=== PATIENT | female | born 1965 | race Caucasian/White ===

== ENCOUNTER 2020-01-28 09:52 | Observation (INO) | payer SELFPAY ==
[~2020-01-28 09:52] MED LIST: GLYCOPYRROLATE 1 MG/5 ML VIAL ONE; KETOROLAC TROMETHAMINE 60 MG/2 ML SDV ONE; NEOSTIGMINE METHYLSULFATE 10 MG/10 ML VIAL ONE; ONDANSETRON HCL INJ/PF 4 MG/2 ML SDV ONE; ROCURONIUM BROMIDE INJ 50 MG/5 ML VIAL IV ONE; SUCCINYLCHOLINE CHLORIDE INJ 200 MG/10 ML VIAL ONE
[2020-01-28] MEDS ORDERED: NORMAL SALINE 1000 ML 1,000 ML IV ONE (10:09)
[2020-01-28] MEDS ORDERED: ONDANSETRON HCL INJ/PF 4 MG/2 ML SDV IV ONE (10:11)
[2020-01-28] MEDS ORDERED: MORPHINE SULFATE 10 MG/ML INJ IV ONE (10:11)
--- NOTE | 2020-01-28 10:11 | ER Document Report ---
ED Medical Screen (RME) - General Chief Complaint: Abdominal Pain Stated Complaint: ABDOMINAL PAIN Time Seen by Provider: 01/28/20 10:05 Notes: Patient is a 54-year-old female who presents to the emergency department with a chief complaint of mid upper abdominal pain. Patient states that her symptoms started last night. States that she tried taking Mylanta, baking soda and water, and Tums to help with her symptoms, but her symptoms did not go away. States "I think it could possibly be my gallbladder." Exam: Tender mid upper and right upper quadrant. I have greeted and performed a rapid initial assessment of this patient. A comprehensive ED assessment and evaluation of the patient, analysis of test results and completion of medical decision making process will be conducted by an additional ED providers. - Related Data Allergies/Adverse Reactions: No Known Allergies Allergy (Verified 01/28/20 10:01) Past Medical History - Social History Chew tobacco use (# tins/day): No Frequency of alcohol use: Occasional Drug Abuse: None - Past Medical History Cardiac Medical History: Reports: Hx Hypercholesterolemia - Immunizations Hx Diphtheria, Pertussis, Tetanus Vaccination: Yes Physical Exam - Vital signs Vitals: Temp Pulse Resp BP Pulse Ox 97.9 F 104 H 20 153/93 H 98 01/28/20 09:59 01/28/20 09:59 01/28/20 09:59 01/28/20 09:59 01/28/20 09:59 Course - Vital Signs Vital signs: Temp Pulse Resp BP Pulse Ox 97.9 F 104 H 20 153/93 H 98 01/28/20 10:02 01/28/20 09:59 01/28/20 09:59 01/28/20 09:59 01/28/20 09:59
[2020-01-28 10:47] LABS: ABSOLUTE BASOPHILS # (AUTO) 0.1 10^3/uL (0.0-0.2); ABSOLUTE MONOCYTES (AUTO) 0.3 10^3/uL (0.1-1.4); BASOPHILS % (AUTO) 0.4 % (0-2); HEMATOCRIT 41.4 % (36.0-47.0); HEMOGLOBIN 14.2 g/dL (12.0-15.5); LYMPHOCYTES % (AUTO) 7.2 % (13-45); MEAN CORPUSCULAR HEMOGLOBIN 29.2 pg (27.0-33.4); MEAN CORPUSCULAR HGB CONC 34.3 g/dL (32.0-36.0); MEAN CORPUSCULAR VOLUME 85 fl (80-97); MONOCYTES % (AUTO) 2.5 % (3-13); PLATELET COUNT 289 10^3/uL (150-450); RED BLOOD COUNT 4.87 10^6/uL (3.72-5.28); RED CELL DISTRIBUTION WIDTH 12.8 % (11.5-14.0); SEGMENTED NEUTROPHILS % (AUTO) 89.9 % (42-78); TOTAL CELLS COUNTED % (AUTO) 100 %; WHITE BLOOD COUNT 13.4 10^3/uL (4.0-10.5)
[2020-01-28 10:48] LABS: APPEARANCE,URINE SLIGHTLY-CLOUDY; BILIRUBIN,URINE NEGATIVE (NEGATIVE); COLOR,URINE YELLOW; GLUCOSE, URINE NEGATIVE (NEGATIVE); KETONES,URINE TRACE mg/dL (NEGATIVE); LEUKOCYTE ESTERASE,URINE NEGATIVE (NEGATIVE); NITRITE,URINE NEGATIVE (NEGATIVE); PROTEIN,URINE 30 mg/dL (NEGATIVE); URINE SPECIFIC GRAVITY 1.026; UROBILINOGEN,URINE NEGATIVE mg/dL (<2.0)
[2020-01-28 11:03] LABS: ALBUMIN 4.8 g/dL (3.5-5.0); ALKALINE PHOSPHATASE 85 U/L (38-126); ANION GAP 10 (5-19); ASPARTATE AMINO TRANSFERASE 29 U/L (14-36); BILIRUBIN,TOTAL 0.5 mg/dL (0.2-1.3); BLOOD UREA NITROGEN 14 mg/dL (7-20); CALCIUM 10.4 mg/dL (8.4-10.2); CARBON DIOXIDE 25 mmol/L (22-30); CHLORIDE 101 mmol/L (98-107); GLUCOSE 145 mg/dL (75-110); POTASSIUM 4.2 mmol/L (3.6-5.0); TOTAL PROTEIN 7.8 g/dL (6.3-8.2)
--- NOTE | 2020-01-28 11:36 | RADIOLOGY REPORT (SQ) ---
EXAM DESCRIPTION: U/S ABDOMEN LIMITED W/O DOP IMAGES COMPLETED DATE/TIME: 01/28/2020 11:22 am REASON FOR STUDY: mid/upper abd pain COMPARISON: None. TECHNIQUE: Dynamic and static grayscale images acquired of the abdomen and recorded on PACS. Additio nal selected color Doppler and spectral images recorded. LIMITATIONS: None. FINDINGS: PANCREAS: Visualized portions of the pancreas are unremarkable. LIVER: Echotexture is coarse with increased echogenicity consistent with fatty infiltration. There i s hepatomegaly. The liver measures 18.3 cm in length. There are small areas of fatty sparing. LIVER VASCULATURE: Normal directional flow of the main portal vein and hepatic veins. GALLBLADDER: There are gallstones. There is an approximately 1 cm nonshadowing stone or sludge ball. ULTRASOUND-DETECTED WRAY'S SIGN: Negative. INTRAHEPATIC DUCTS AND COMMON DUCT: The common bile duct is slightly dilated measured at 7 mm. AORTA: No aneurysm. RIGHT KIDNEY: Normal size. Normal echogenicity. No solid or suspicious masses. No hydronephros is. No calcifications. PERITONEAL AND RIGHT PLEURAL SPACE: No ascites or effusions. OTHER: No other significant finding. IMPRESSION: 1. Fatty infiltrated liver. Mild hepatomegaly. 2. Gallstones and probable 1 cm sludge ball. 3. Mild common bile duct dilatation. The common bile duct measures 7 mm. TECHNICAL DOCUMENTATION: JOB ID: [id number] 2010 [employer]- All Rights Reserved Reading location - IP/workstation name: [email or web address]
[2020-01-28] MEDS ORDERED: ONDANSETRON HCL INJ/PF 4 MG/2 ML SDV IV PRN (14:09)
--- NOTE | 2020-01-28 14:16 | PDOC H&P ---
History of Present Illness Patient complains of: Abdominal pain History of Present Illness: RANDALL FREEMAN is a 54 year old female Presents emergency department via ground rescue with history of acute onset abdominal pain yesterday 5 PM after eating nachos. Patient continued to have abdominal pain nausea, anorexia and some vomiting. She was seen in the emergency department where she is found to have right upper quadrant tenderness. Gallbladder ultrasonography revealed gallstones. Surgery was consulted and she was advised admission for definitive management. White blood cell count was elevated at 13,000, liver function studies within normal limits. Of note patient is never had a colonoscopy. Past Medical History Cardiac Medical History: Reports: Hyperlipidema Past Surgical History Past Surgical History: Reports: None Social History Information Source: Patient Smoking Status: Former Smoker Electronic Cigarette use?: No Frequency of Alcohol Use: Rare Hx Recreational Drug Use: No Hx Prescription Drug Abuse: No Family History Family History: None Parental Family History Reviewed: No Children Family History Reviewed: No Sibling(s) Family History Reviewed.: No Medication/Allergy Home Medications: Cholecalciferol (Vitamin D3) [Vitamin D] 5,000 unit PO DAILY 03/20/12 Glucosa Dang 2Kcl/Chondroitin Dang [Glucosamine & Chondroitin Cap] 1 each PO DAILY 03/20/12 Hydrocodone Bit/Acetaminophen [Vicodin 5-500 mg Tablet] 1 - 2 tab PO ASDIR PRN #15 tablet 03/20/12 Ibuprofen 800 mg PO DAILY 03/20/12 Naproxen [Naprosyn] 500 mg PO BID #14 tablet 03/20/12 Allergies/Adverse Reactions: No Known Allergies Allergy (Verified 01/28/20 10:01) Review of Systems Constitutional: PRESENT: as per HPI Eyes: ABSENT: visual disturbances Ears: ABSENT: hearing changes Cardiovascular: ABSENT: chest pain, dyspnea on exertion, edema, orthropnea, palpitations Respiratory: ABSENT: cough, hemoptysis Gastrointestinal: PRESENT: as per HPI Genitourinary: ABSENT: dysuria, hematuria Musculoskeletal: ABSENT: joint swelling Integumentary: ABSENT: rash, wounds Neurological: ABSENT: abnormal gait, abnormal speech, confusion, dizziness, focal weakness, syncope Psychiatric: ABSENT: anxiety, depression, homidical ideation, suicidal ideation Endocrine: ABSENT: cold intolerance, heat intolerance, polydipsia, polyuria Hematologic/Lymphatic: ABSENT: easy bleeding, easy bruising Physical Exam Vital Signs: Temp Pulse Resp BP Pulse Ox 97.9 F 104 H 20 153/93 H 98 01/28/20 10:02 01/28/20 09:59 01/28/20 09:59 01/28/20 09:59 01/28/20 09:59 Intake & Output 01/27/20 01/28/20 01/29/20 06:59 06:59 06:59 Intake Total 1000 Balance 1000 Weight 83.2 kg General appearance: PRESENT: no acute distress Head exam: PRESENT: normocephalic Eye exam: PRESENT: EOMI Mouth exam: PRESENT: dry mucosa Neck exam: PRESENT: full ROM Respiratory exam: PRESENT: clear to auscultation sandy Cardiovascular exam: PRESENT: RRR Pulses: PRESENT: normal carotid pulses, normal radial pulses, normal femoral pulses, normal dorsalis pedis pul, +1 pedal pulses bilateral Breast: PRESENT: Normal GI/Abdominal exam: PRESENT: other - Tender right upper quadrant with mild guarding. No rigidity; no hernias. Rectal exam: PRESENT: deferred Extremities exam: PRESENT: full ROM Musculoskeletal exam: PRESENT: full ROM Neurological exam: PRESENT: oriented to person, oriented to place, oriented to time, oriented to situation Psychiatric exam: PRESENT: appropriate affect Skin exam: PRESENT: dry Results Laboratory Results: 01/28/20 10:21 01/28/20 10:21 01/28/20 01/28/20 01/28/20 10:21 10:21 10:21 WBC 13.4 H RBC 4.87 Hgb 14.2 Hct 41.4 MCV 85 MCH 29.2 MCHC 34.3 RDW 12.8 Plt Count 289 Seg Neutrophils % 89.9 H Sodium 135.9 L Potassium 4.2 Chloride 101 Carbon Dioxide 25 Anion Gap 10 BUN 14 Creatinine 0.81 Est GFR ( Amer) > 60 Glucose 145 H Calcium 10.4 H Total Bilirubin 0.5 AST 29 Alkaline Phosphatase 85 Total Protein 7.8 Albumin 4.8 Lipase 92.3 Urine Color YELLOW Urine Appearance SLIGHTLY-CLOUDY Urine pH 5.0 Ur Specific [place] 1.026 Urine Protein 30 H Urine Glucose (UA) NEGATIVE Urine Ketones TRACE H Urine Blood SMALL H Urine Nitrite NEGATIVE Ur Leukocyte Esterase NEGATIVE Urine WBC (Auto) 5 Urine RBC (Auto) 5 01/28/20 10:21 Troponin I < 0.012 Impressions: Abdomen Ultrasound 01/28/20 10:08 IMPRESSION: 1. Fatty infiltrated liver. Mild hepatomegaly. 2. Gallstones and probable 1 cm sludge ball. 3. Mild common bile duct dilatation. The common bile duct measures 7 mm. Assessment & Plan - Diagnosis (1) Symptomatic cholelithiasis Is this a current diagnosis for this admission?: Yes Plan: Impression: Acute symptomatic cholelithiasis with cholecystitis and otherwise healthy 54-year-old white female; patient tender right upper quadrant despite n arcotic therapy. Recommend admission Plan: 1. Admit to surgical service, clear liquids today, keep n.p.o. after midnight and plan for laparoscopic, possible open cholecystectomy on January 28. 2. The above plan explained to the patient and her daughter. They expressed understanding agree to proceed. 3. We will check COVID-19 status today. (2) Leukocytosis Is this a current diagnosis for this admission?: Yes - Time Time Spent: 30 to 50 Minutes Critical Time spent with patient: 15-24 minutes Anticipated discharge: Home - Inpatient Certification Based on my medical assessment, after consideration of the patient's comorbi dities, presenting symptoms, or acuity I expect that the services needed warrant INPATIENT care.: Yes I certify that my determination is in accordance with my understanding of Medicare's requirements for reasonable and necessary INPATIENT services [42 CFR 412.3e].: Yes Medical Necessity: Need For IV Fluids, Need for Pain Control, Need for IV Antibiotics, Need for Surgery
--- NOTE | 2020-01-28 14:31 | ER Document Report ---
ED General - General Chief Complaint: Abdominal Pain Stated Complaint: ABDOMINAL PAIN Time Seen by Provider: 01/28/20 10:05 Mode of Arrival: Medic Information source: Patient - HPI Notes: Patient presents with right upper quadrant and epigastric abdominal pain. It does radiate across to the left side of the upper part of the abdomen. It is a sharp and colicky type pain. It does also go to her back. It is severe in intensity. It has been constant. Is worse with movement and better with rest. She states that it seemed to start after eating nodules last night for dinner. She has had nausea and vomiting. No problems with stool or urine. No previous history of abdominal surgeries. - Related Data Allergies/Adverse Reactions: No Known Allergies Allergy (Verified 01/28/20 10:01) Past Medical History - General Information source: Patient - Social History Smoking Status: Former Smoker Chew tobacco use (# tins/day): No Frequency of alcohol use: Occasional Drug Abuse: None Family History: None Patient has homicidal ideation: No - Past Medical History Cardiac Medical History: Reports: Hx Hypercholesterolemia Past Surgical History: Reports: None - Immunizations Hx Diphtheria, Pertussis, Tetanus Vaccination: Yes Review of Systems - Review of Systems Constitutional: denies: Chills, Fever Cardiovascular: denies: Chest pain, Palpitations Respiratory: denies: Cough, Short of breath -: Yes All other systems reviewed and negative Physical Exam - Vital signs Vitals: Temp Pulse Resp BP Pulse Ox 97.9 F 104 H 20 153/93 H 98 01/28/20 09:59 01/28/20 09:59 01/28/20 09:59 01/28/20 09:59 01/28/20 09:59 Interpretation: Hypertensive - General General appearance: Appears well, Alert - HEENT Head: Normocephalic, Atraumatic Eyes: Normal Pupils: PERRL - Respiratory Respiratory status: No respiratory distress Chest status: Nontender Breath sounds: Normal Chest palpation: Normal - Cardiovascular Rhythm: Regular Heart sounds: Normal auscultation Murmur: No - Abdominal Inspection: Normal Distension: No distension Bowel sounds: Normal Tenderness: Tender - Patient has tenderness in the right upper quadrant, De Jesus's sign - to palpation. Organomegaly: No organomegaly - Back Back: Normal, Nontender - Extremities General upper extremity: Normal inspection, Nontender, Normal color, Normal ROM, Normal temperature General lower extremity: Normal inspection, Nontender, Normal color, Normal ROM, Normal temperature, Normal weight bearing. No: Cynthia's sign - Neurological Neuro grossly intact: Yes Cognition: Normal Orientation: AAOx4 [place] Coma Scale Eye Opening: Spontaneous [place] Coma Scale Verbal: Oriented [place] Coma Scale Motor: Obeys Commands [place] Coma Scale Total: 15 Speech: Normal Motor strength normal: LUE, RUE, LLE, RLE Sensory: Normal - Psychological Associated symptoms: Normal affect, Normal mood - Skin Skin Temperature: Warm Skin Moisture: Dry Skin Color: Normal Course - Re-evaluation Re-evalutation: 01/28/20 14:30 Patient presents with symptoms after eating a fatty meal. Work-up is consistent with acute cholecystitis. Surgery was consulted and will admit the patient for further care. - Vital Signs Vital signs: Temp Pulse Resp BP Pulse Ox 97.9 F 104 H 20 153/93 H 98 01/28/20 10:02 01/28/20 09:59 01/28/20 09:59 01/28/20 09:59 01/28/20 09:59 - Laboratory Result Diagrams: 01/28/20 10:21 01/28/20 10:21 Laboratory results interpreted by me: 01/28/20 01/28/20 01/28/20 10:21 10:21 10:21 WBC 13.4 H Lymph % (Auto) 7.2 L [place] % (Auto) 2.5 L Absolute Neuts (auto) 12.0 H Seg Neutrophils % 89.9 H Sodium 135.9 L Glucose 145 H Calcium 10.4 H Urine Protein 30 H Urine Ketones TRACE H Urine Blood SMALL H - Diagnostic Test Radiology reviewed: Image reviewed, Reports reviewed - EKG Interpretation by Sd EKG shows normal: Sinus rhythm Rate: Normal - 87 Rhythm: NSR [place]/QRS: No: Right axis deviation, Left axis deviation Discharge - Discharge Clinical Impression: Acute cholecystitis Condition: Fair Disposition: ADMITTED INPATIENT Admitting Provider: Surgicalist Unit Admitted: Surgical Floor
--- NOTE | 2020-01-28 14:32 | EKG REPORT ---
SEVERITY:- BORDERLINE ECG - SINUS RHYTHM BORDERLINE T WAVE ABNORMALITIES : Confirmed by: Nimisha Alcala MD 28-Jan-2020 14:32:09
[2020-01-28] MEDS ORDERED: CEFAZOLIN 1 GM/D5W RTU 1 GM/50 ML RTUPB IV SCH (15:00)
[2020-01-28] MEDS ORDERED: ACETAMINOPHEN 1,000 MG/100 ML RTUPB IV ONE ×2 (17:48→23:54)
[2020-01-28] MEDS: RINGERS SOLUTION,LACTATED 1,000 ML IV PRN (17:55)
[2020-01-28] MEDS: ACETAMINOPHEN INJ/PF 1000 MG/100 ML SDV IV SCH ×2 (17:58→23:59)
[2020-01-28] MEDS: CEFAZOLIN 1 GM/D5W RTU 1 GM/50 ML RTUPB IV SCH (18:28)
[2020-01-29] MEDS: RINGERS SOLUTION,LACTATED 1,000 ML IV PRN (00:41)
[2020-01-29] MEDS: CEFAZOLIN 1 GM/D5W RTU 1 GM/50 ML RTUPB IV SCH ×3 (01:40→18:29)
[2020-01-29] MEDS ORDERED: ACETAMINOPHEN 1,000 MG/100 ML RTUPB IV ONE (05:07)
[2020-01-29] MEDS: ACETAMINOPHEN INJ/PF 1000 MG/100 ML SDV IV SCH ×3 (05:11→18:29)
[2020-01-29] MEDS ORDERED: FENTANYL CITRATE INJ/PF 100 MCG/2 ML AMPUL ONE ×2 (06:57→11:22)
[2020-01-29] MEDS ORDERED: PROPOFOL INJ 200 MG/20 ML VIAL IV ONE (06:58)
[2020-01-29] MEDS ORDERED: MIDAZOLAM 2 MG/2 ML INJ ONE (06:58)
[2020-01-29] MEDS ORDERED: ROCURONIUM BROMIDE INJ 50 MG/5 ML VIAL IV ONE (08:06)
[2020-01-29] MEDS ORDERED: SUCCINYLCHOLINE CHLORIDE INJ 200 MG/10 ML VIAL ONE (08:06)
[2020-01-29] MEDS ORDERED: BUPIVACAINE INJ/PF LIPOSOME/PF 266 MG/20 ML SDV ONE (11:21)
[2020-01-29] MEDS ORDERED: MORPHINE SULFATE 10 MG/ML INJ ONE (11:23)
[2020-01-29] MEDS ORDERED: CEFAZOLIN INJ 1 GM VIAL ONE (11:53)
[2020-01-29] MEDS ORDERED: PROMETHAZINE HCL INJ 25 MG/1 ML VIAL IV PRN (12:36)
[2020-01-29] MEDS ORDERED: FENTANYL CITRATE INJ/PF 100 MCG/2 ML AMPUL IV PRN ×3 (12:36)
[2020-01-29] MEDS ORDERED: ONDANSETRON HCL INJ/PF 4 MG/2 ML SDV IV PRN (12:36)
[2020-01-29] MEDS ORDERED: DIPHENHYDRAMINE HCL 50 MG/ML VIAL IV PRN (12:36)
[2020-01-29] MEDS ORDERED: MEPERIDINE HCL/PF INJ 25 MG/1 ML DISP.SYRIN IV PRN (12:36)
[2020-01-29] MEDS ORDERED: OXYCODONE-ACETAMINOPHEN 5-325 MG TABLET PO PRN ×2 (12:36)
[2020-01-29] MEDS ORDERED: MORPHINE SULFATE 10 MG/ML INJ IV PRN (12:36)
--- NOTE | 2020-01-29 12:58 | Operative Report ---
Nonrecallable Operative Report DATE OF SURGERY: 01/29/20 PREOPERATIVE DIAGNOSIS: Acute cholecystitis POSTOPERATIVE DIAGNOSIS: Acute cholecystitis OPERATION: Laparoscopic cholecystectomy SURGEON: ERROL ANTONIO ANESTHESIA: GA TISSUE REMOVED OR ALTERED: Gallbladder COMPLICATIONS: None ESTIMATED BLOOD LOSS: 25 cc INTRAOPERATIVE FINDINGS: See note PROCEDURE: After obtaining informed consent, the patient was taken to the operating room. General Anesthesia was induced; the arms were extended, and the abdomen was exposed, and prepped and draped in a sterile fashion. Instrumentation was set up for laparoscopic cholecystectomy. Surgical plan and surgical timeout were conducted. A vertical incision was made above the umbilicus, and a verres needle was inserted uneventfully into the peritoneal cavity. Pneumoperitoneum was established. The verres needle was removed and a 10 mm trocar was inserted and a 10 mm Ble laparoscope was inserted. Visualization of the peritoneal cavity confirmed safe uneventful entry. Under direct visualization 3 additional 5 mm ports were established, one in the subxiphoid position and second in the subcostal position. Visualization of the hepatobiliary anatomy revealed no anatomic variations. A grasper was placed on the fundus of the gallbladder and the gallbladder is elevated over the right surface of the liver; a second grasper was used to grasp the infundibulum of the gallbladder. The neck of the gallbladder and junction with the cystic duct was dissected out. The Cystic artery was in its usual location medial and cephalad to the cystic duct. The cystic artery was surrounded with a right angle clamp, clipped twice proximally and divided with laparoscopic scissors. We now opened the triangle of [place] by dividing the peritoneal reflection on both the medial and lateral sides of the cystic duct infundibular junction. The critical view was obtained. We now milked the cystic duct of any possible stones, clipped the cystic duct approximately 2 times once distally and divided with scissors. The gallbladder was now removed from the undersurface of the liver using hook cautery dissection. Graspers were repositioned and the gallbladder was removed uneventfully from the abdominal cavity through the super umbilical port site incision. The specimen was examined, then passed off to pathology for permanent analysis. We returned to the peritoneal cavity check for bleeding, and evidence of bile leak, and there was none. We Confirmed satisfactory placement of clips on cystic duct and cystic artery were secured . At this point we felt the operation was complete. The subcutaneous tissue was then anesthetized with stefania rter percent Marcaine Sponge and needle counts are correct. All ports removed under direct visualization pneumoperitoneum evacuated, and 5 mm port wounds closed with 3-0 Vicryl suture, benzoin and Steri-Strips. The patient was extubated, and taken to the recovery room in stable condition. Estimated blood loss was 25 cc sponge needle counts were correct x2
--- NOTE | 2020-01-29 13:01 | PDOC DISCHARGE SUMMARY ---
General - Admit/Disc Date/PCP Admission Date/Primary Care Provider: 01/28/20 14:42 Discharge Date: 01/29/20 - Discharge Diagnosis Final Diagnosis: Acute cholecystitis - Assessment Summary: Patient was admitted to the hospital the day prior to surgery with right upper quadrant pain and signs and symptoms of acute cholecystitis. She was taken to the operating the following morning for a laparoscopic cholecystectomy. The procedure was uneventful and she had a routine postoperative recovery. She is now afebrile with stable vital signs she is tolerating liquids and ready for discharge home. She will be followed up in surgical clinic in 7 to 10 days after discharge. She will be given a small amount of Percocet for pain. Final diagnosis acute cholecystitis - Additional Information Resuscitation Status: Full Code Discharge Diet: As Tolerated Discharge Activity: Activity As Tolerated, No Lifting Over 10 Pounds, No Lifting/Push/Pulling Prescriptions: Oxycodone HCl/Acetaminophen [Percocet 10-325 Mg Tablet] 1 each PO Q6HP PRN #15 tablet PRN Reason: Home Medications: Oxycodone HCl/Acetaminophen [Percocet 10-325 Mg Tablet] 1 each PO Q6HP PRN #15 tablet 01/29/20 History of Present Illiness History of Present Illness: RANDALL FREEMAN is a 54 year old female Physical Exam Vital Signs: Temp Pulse Resp BP Pulse Ox 97.9 F 77 18 134/79 H 97 01/29/20 10:15 01/29/20 10:15 01/29/20 10:15 01/29/20 10:15 01/29/20 10:15 Intake & Output 01/28/20 01/29/20 01/30/20 06:59 06:59 06:59 Intake Total 2600 650 Output Total 650 Balance 2600 0 Weight 40 kg Results Laboratory Results: WBC 13.4 10^3/uL (4.0-10.5) H 01/28/20 10:21 RBC 4.87 10^6/uL (3.72-5.28) 01/28/20 10:21 Hgb 14.2 g/dL (12.0-15.5) 01/28/20 10:21 Hct 41.4 % (36.0-47.0) 01/28/20 10:21 MCV 85 fl (80-97) 01/28/20 10:21 MCH 29.2 pg (27.0-33.4) 01/28/20 10:21 MCHC 34.3 g/dL (32.0-36.0) 01/28/20 10:21 RDW 12.8 % (11.5-14.0) 01/28/20 10:21 Plt Count 289 10^3/uL (150-450) 01/28/20 10:21 Lymph % (Auto) 7.2 % (13-45) L 01/28/20 10:21 [place] % (Auto) 2.5 % (3-13) L 01/28/20 10:21 Eos % (Auto) 0.0 % (0-6) 01/28/20 10:21 Baso % (Auto) 0.4 % (0-2) 01/28/20 10:21 Absolute Neuts (auto) 12.0 10^3/uL (1.7-8.2) H 01/28/20 10:21 Absolute Lymphs (auto) 1.0 10^3/uL (0.5-4.7) 01/28/20 10:21 Absolute Monos (auto) 0.3 10^3/uL (0.1-1.4) 01/28/20 10:21 Absolute Eos (auto) 0.0 10^3/uL (0.0-0.6) 01/28/20 10:21 Absolute Basos (auto) 0.1 10^3/uL (0.0-0.2) 01/28/20 10:21 Seg Neutrophils % 89.9 % (42-78) H 01/28/20 10:21 Sodium 135.9 mmol/L (137-145) L 01/28/20 10:21 Potassium 4.2 mmol/L (3.6-5.0) 01/28/20 10:21 Chloride 101 mmol/L (98-107) 01/28/20 10:21 Carbon Dioxide 25 mmol/L (22-30) 01/28/20 10:21 Anion Gap 10 (5-19) 01/28/20 10:21 BUN 14 mg/dL (7-20) 01/28/20 10:21 Creatinine 0.81 mg/dL (0.52-1.25) 01/28/20 10:21 Est GFR ( Amer) > 60 (>60) 01/28/20 10:21 Est GFR (MDRD) Non-Af > 60 (>60) 01/28/20 10:21 Glucose 145 mg/dL (75-110) H 01/28/20 10:21 Calcium 10.4 mg/dL (8.4-10.2) H 01/28/20 10:21 Total Bilirubin 0.5 mg/dL (0.2-1.3) 01/28/20 10:21 Direct Bilirubin 0.0 mg/dL (0.0-0.4) 01/28/20 10:21 Neonat Total Bilirubin Not Reportable 01/28/20 10:21 Neonat Direct Bilirubin Not Reportable 01/28/20 10:21 Neonat Indirect Bili Not Reportable 01/28/20 10:21 AST 29 U/L (14-36) 01/28/20 10:21 ALT 29 U/L (<35) 01/28/20 10:21 Alkaline Phosphatase 85 U/L (38-126) 01/28/20 10:21 Troponin I < 0.012 ng/mL 01/28/20 10:21 Total Protein 7.8 g/dL (6.3-8.2) 01/28/20 10:21 Albumin 4.8 g/dL (3.5-5.0) 01/28/20 10:21 Lipase 92.3 U/L (23-300) 01/28/20 10:21 Urine Color YELLOW 01/28/20 10:21 Urine Appearance SLIGHTLY-CLOUDY 01/28/20 10:21 Urine pH 5.0 (5.0-9.0) 01/28/20 10:21 Ur Specific [place] 1.026 01/28/20 10:21 Urine Protein 30 mg/dL (NEGATIVE) H 01/28/20 10:21 Urine Glucose (UA) NEGATIVE mg/dL (NEGATIVE) 01/28/20 10:21 Urine Ketones TRACE mg/dL (NEGATIVE) H 01/28/20 10:21 Urine Blood SMALL (NEGATIVE) H 01/28/20 10:21 Urine Nitrite NEGATIVE (NEGATIVE) 01/28/20 10:21 Urine Bilirubin NEGATIVE (NEGATIVE) 01/28/20 10:21 Urine Urobilinogen NEGATIVE mg/dL (<2.0) 01/28/20 10:21 Ur Leukocyte Esterase NEGATIVE (NEGATIVE) 01/28/20 10:21 Urine WBC (Auto) 5 /HPF 01/28/20 10:21 Urine RBC (Auto) 5 /HPF 01/28/20 10:21 Urine Bacteria (Auto) TRACE /HPF 01/28/20 10:21 Squamous Epi Cells Auto 6 /HPF 01/28/20 10:21 Urine Mucus (Auto) FEW /LPF 01/28/20 10:21 Urine Ascorbic Acid NEGATIVE (NEGATIVE) 01/28/20 10:21 SARS-CoV-2 (PCR) NEGATIVE (NEGATIVE) 01/28/20 14:50 01/28/20 10:21 Troponin I < 0.012 Impressions: Abdomen Ultrasound 01/28/20 10:08 IMPRESSION: 1. Fatty infiltrated liver. Mild hepatomegaly. 2. Gallstones and probable 1 cm sludge ball. 3. Mild common bile duct dilatation. The common bile duct measures 7 mm.
[2020-01-29 18:15] VITALS: BP 134/79
== END 2020-01-29 19:00 | disposition home or self-care (01) ==
LOC: ER 09:52 → EH 14:42 → 2N 17:20
PROVIDERS: ATTEND Surgery
PROC: 0FT44ZZ Resection of Gallbladder, Percutaneous Endoscopic Approach (ICD-10-PCS; principal; 2020-01-29 11:30)
DX: K80.12 Calculus of gallbladder with acute and chronic cholecystitis without obstruction (principal); Z03.818 Encounter for observation for suspected exposure to other biological agents ruled out; Z87.891 Personal history of nicotine dependence; E78.5 Hyperlipidemia, unspecified
CPT/HCPCS: 47562; 93005; 99285; 96361; 96374; 36415; 83690; 85025; 87635; 80053; 81001; 84484; 88304 ×2; 76705; 93010; 00790; G0378 ×2; J2250; J0690 ×3; J3490 ×3; J1885; J3010; J2270; J2710; J0330 ×2; J2405; J7030; J7120 ×2; J2704; J0131 ×2; C9290; C9803; 790